=== PATIENT | female | born 2000 | race African-American/Black ===

== ENCOUNTER 2021-03-10 01:47 | Emergency (ER) | payer SELFPAY ==
--- OUTSIDE RECORDS SUMMARY | 2021-03-10 01:50 | XMS REPORT | Continuity of Care Document ---
:2000 Author Organization [facility] t Address [address] [place] [address] Care Team Providers Name Role Phone Unavailable Unavailable Unavailable Payers Payer Name Policy Type Policy Number Effective Date Expiration Date S ource Problems This patient has no known problems. Allergies, Adverse Reactions, Alerts Allergy Allergy Status Severity Reaction(s) Onset Inactive Treating Comm ents Source Name Type Date Date Clinician No Known DA Active U [facility] Allergie 12-17 Clear s 00:00: [place] 00 [facility] Medications This patient has no known medications. Procedures This patient has no known procedures. Results Test Description Test Time Test Comments Results Result Comments Source UA RFLX MICR CULT IF INDICATED 2020-12-17 01:04:00 Test Item Value Reference Range Interpretation Comme nts UA COLOR (test code = COLU) YELLOW YEL/STRAW UA APPEARANCE (test code = APPU) CLEAR CLEAR UA GLUCOSE DIPSTICK (test code = DGLUU) NEGATIVE NEGATIVE UA BILIRUBIN DIPSTICK (test code = BILU) NEGATIVE NEGATIVE UA KETONE DIPSTICK (test code = KETU) NEGATIVE NEGATIVE UA SPECIFIC GRAVITY (test code = SGU) 1.023 1.005-1.030 N UA BLOOD DIPSTICK (test code = ANTONIO) 2+ NEGATIVE A UA PH DIPSTICK (test code = SARAH) 6.0 5.0-7.0 N UA PROTEIN DIPSTICK (test code = PROU) NEGATIVE NEGATIVE UA UROBILINIOGEN DIPSTICK (test code = URO) 4.0 mg/dL 0.2-1.0 A UA NITRITE DIPSTICK (test code = YENNY) NEGATIVE NEGATIVE UA LEUKOCYTE ESTERASE DIPSTICK (test code = LEUU) 2+ NEGA TIVE A UA WBC (test code = WBCU) 10-20 WBC/HPF 0-3 A UA RBC (test code = RBCU) 0-3 RBC/HPF 0-3 UA WBC NO REFLEX (test code = WBCUCL) 10-20 WBC/HPF 0-3 A UA BACTERIA (test code = BACU) 1+ /HPF NONE SEEN A UA SQUAMOUS CELLS (test code = SQU) 0-5 /HPF NONE SEEN UA MUCUS (test code = MUCU) TRACE /LPF NONE SEEN Indication for culture: RiskForSepsis-no oth srcSpecimen Description: CLEAN CATCHUR HCG [id number] 00:59:00 Test Item Value Reference Range Interpretation Comments UR HCG QUAL (test code = HCGQLU) NEGATIVE NEGATIVE
[2021-03-10 02:51] LABS: Urine Blood Trace-intact (Negative); Urine Glucose 2+ (Negative); Urine Protein Negative (Negative); Urine Specific Gravity >=1.030 (1.005-1.030)
--- NOTE | 2021-03-10 03:03 | EDPHYS ---
Physician Documentation [facility] Name: Leelee Dallas Age: 20 yrs Sex: Female : 2000 Arrival Date: 03/10/2021 Time: 01:51 Bed 19 Private MD: ED Physician Mahamed Alexander HPI: 03/10 02:56 This 20 yrs old Black Female presents to ER via Ambulatory with complaints of Vaginal pkl Pain. 02:56 The patient presents with Vaginal itching and pain. Onset: The symptoms/episode pkl began/occurred 3 month(s) ago. 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 - Social history:: Smoking status: Patient denies any tobacco usage or history of. ROS: 02:56 Positive for Vaginal itching and pain. pkl 02:56 Eyes: Negative for injury, pain, redness, and discharge, ENT: Negative for injury, pain, and discharge, Neck: Negative for injury, pain, and swelling, Cardiovascular: Negative for chest pain, palpitations, and edema, Respiratory: Negative for shortness of breath, cough, wheezing, and pleuritic chest pain, Abdomen/GI: Negative for abdominal pain, nausea, vomiting, diarrhea, and constipation, Back: Negative for injury and pain, MS/Extremity: Negative for injury and deformity, Skin: Negative for injury, rash, and discoloration, Neuro: Negative for headache, weakness, numbness, tingling, and seizure. Exam: 02:56 Head/Face: Normocephalic, atraumatic. Eyes: Pupils equal round and reactive to light, pkl extra-ocular motions intact. Lids and lashes normal. Conjunctiva and sclera are non-icteric and not injected. Cornea within normal limits. Periorbital areas with no swelling, redness, or edema. ENT: Nares patent. No nasal discharge, no septal abnormalities noted. Tympanic membranes are normal and external auditory canals are clear. Oropharynx with no redness, swelling, or masses, exudates, or evidence of obstruction, uvula midline. Mucous membranes moist. Neck: Trachea midline, no thyromegaly or masses palpated, and no cervical lymphadenopathy. Supple, full range of motion without nuchal rigidity, or vertebral point tenderness. No Meningismus. Chest/axilla: Normal chest wall appearance and motion. Nontender with no deformity. No lesions are appreciated. Cardiovascular: Regular rate and rhythm with a normal S1 and S2. No gallops, murmurs, or rubs. Normal PMI, no JVD. No pulse deficits. Respiratory: Lungs have equal breath sounds bilaterally, clear to auscultation and percussion. No rales, rhonchi or wheezes noted. No increased work of breathing, no retractions or nasal flaring. Abdomen/GI: Soft, non-tender, with normal bowel sounds. No distension or tympany. No guarding or rebound. No evidence of tenderness throughout. Back: No spinal tenderness. No costovertebral tenderness. Full range of motion. 02:56 : Pelvic Exam: External exam: No vaginal discharge noted. 02:56 Musculoskeletal/extremity: Exam is negative for acute changes. 02:56 Skin: Exam negative for rash. 02:56 Neuro: Orientation: is normal, Mentation: is normal, Cranial nerves: grossly normal, Motor: is normal, Gait: is steady. Vital Signs: 02:01 BP 123 / 68; Pulse 101; Resp 16 S; Temp 98.6(O); Pulse Ox 99% on R/A; Weight 127.01 kg bb (R); Height 5 ft. 3 in. (160.02 cm) (R); Pain 0/10; 03:18 BP 115 / 74; Pulse 74; Resp 20; Pulse Ox 98% on R/A; ak2 02:01 Body Mass Index 49.60 (127.01 kg, 160.02 cm) bb MDM: 02:04 Patient medically screened. pkl 02:56 Data reviewed: vital signs, nurses notes. pkl 03/10 02:42 Order name: Vag/ure Culture 03/10 02:43 Order name: Vag/Ure Culture EDNH 03/10 02:50 Order name: Urine Dipstick-Ancillary; Complete Time: 04:35 EDNH 03/10 03:54 Order name: Accucheck; Complete Time: 03:54 bb Administered Medications: No medications were administered Disposition: 03/10/21 03:02 Discharged to Home. Impression: Vaginitis. Diabetes. - Condition is Stable. - Prescriptions for Diflucan 150 mg Oral Tablet - take 1 tablet by ORAL route one time for 2 days; 2 tablet. - Medication Reconciliation Form, Thank You Letter, Antibiotic Education, Prescription Opioid Use form. - Follow up: Monique Chambers MD; When: 2 - 3 days; Reason: Re-evaluation by your physician. - Problem is new. - Symptoms are unchanged. Signatures: Dispatcher [employer] EDMS Mahamed Alexander MD MD pkl Deyanira Rivera, RN RN bb Lukas Adams ak2 Corrections: (The following items were deleted from the chart) 03:11 03:02 03/10/2021 03:02 Discharged to Home. Impression: Vaginitis. Condition is Stable. pkl Forms are Medication Reconciliation Form, Thank You Letter, Antibiotic Education, Prescription Opioid Use. Follow up: Monique Chambers; When: 2 - 3 days; Reason: Re-evaluation by your physician. Problem is new. Symptoms are unchanged. pkl 03:19 03:11 03/10/2021 03:02 Discharged to Home. Impression: Vaginitis. Diabetes. Condition ak2 is Stable. Prescriptions for Diflucan 150 mg Oral Tablet - take 1 tablet by ORAL route one time for 2 days; 2 tablet. and Forms are Medication Reconciliation Form, Thank You Letter, Antibiotic Education, Prescription Opioid Use. Follow up: Monique Chambers; When: 2 - 3 days; Reason: Re-evaluation by your physician. Problem is new. Symptoms are unchanged. pkl 03:54 03:19 03/10/2021 03:02 Discharged to Home. Impression: Vaginitis. Diabetes. Condition bb is Stable. Prescriptions for Diflucan 150 mg Oral Tablet - take 1 tablet by ORAL route one time for 2 days; 2 tablet. and Forms are Medication Reconciliation Form, Thank You Letter, Antibiotic Education, Prescription Opioid Use. Follow up: Monique Chambers; When: 2 - 3 days; Reason: Re-evaluation by your physician. Problem is new. Symptoms are unchanged. ak2
--- NOTE | 2021-03-10 03:03 | ER ---
Nurse's Notes [facility] Name: Leelee Dallas Age: 20 yrs Sex: Female : 2000 Arrival Date: 03/10/2021 Time: 01:51 Bed 19 Private MD: Diagnosis: Vaginitis. Diabetes Presentation: 03/10 02:01 Chief complaint: Patient states: she is having vaginal itching and burning x 3 months bb she was treated for a yeast infection 3 months ago and it went away for 2 weeks then came back she is unable to use monistat because it lomas too much. Coronavirus screen: At this time, the client does not indicate any symptoms associated with coronavirus-19. Ebola Screen: No symptoms or risks identified at this time. Initial Sepsis Screen: Does the patient meet any 2 criteria? No. Patient's initial sepsis screen is negative. Does the patient have a suspected source of infection? No. Patient's initial sepsis screen is negative. Risk Assessment: Do you want to hurt yourself or someone else? Patient reports no desire to harm self or others. Onset of symptoms was November 2020. 02:01 Method Of Arrival: Ambulatory bb 02:01 Acuity: GISSELL 4 bb Triage Assessment: 02:04 General: Appears in no apparent distress. Behavior is calm, cooperative. Pain: ak2 Complains of pain in pelvis. 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 - Social history:: Smoking status: Patient denies any tobacco usage or history of. Screenin:04 Abuse screen: Denies threats or abuse. Denies injuries from another. Nutritional ak2 screening: No deficits noted. Tuberculosis screening: No symptoms or risk factors identified. Fall Risk None identified. Assessment: 02:37 General: urine preg test: negative. ak2 Vital Signs: 02:01 BP 123 / 68; Pulse 101; Resp 16 S; Temp 98.6(O); Pulse Ox 99% on R/A; Weight 127.01 kg bb (R); Height 5 ft. 3 in. (160.02 cm) (R); Pain 0/10; 03:18 BP 115 / 74; Pulse 74; Resp 20; Pulse Ox 98% on R/A; ak2 02:01 Body Mass Index 49.60 (127.01 kg, 160.02 cm) [facility] ED Course: 01:51 Patient arrived in ED. am4 02:03 Triage completed. bb 02:03 Lukas Adams is Primary Nurse. ak2 02:03 Arm band placed on Patient placed in an exam room, on a stretcher, on pulse oximetry. bb Family accompanied patient. 02:04 Mahamed Alexander MD is Attending Physician. pkl 02:04 Patient has correct armband on for positive identification. ak2 02:04 No provider procedures requiring assistance completed. ak2 02:40 Assist provider with pelvic exam: Performed by Mahamed Alexander MD Specimens sent to lab. bb Patient tolerated well. 03:02 Monique Chambers MD is Referral Physician. pkl Administered Medications: No medications were administered Outcome: 03:02 Discharge ordered by . pkl 03:18 Discharged to home ambulatory. ak2 03:18 Condition: good 03:18 Discharge instructions given to patient, Prescriptions given X 2. 03:19 Patient left the ED. ak2 03:54 Patient left the ED. bb Signatures: Mahamed Alexander MD MD pkl Deyanira Rivera RN RN Yoana Aldana am4 Lukas Adams ak2
[2021-03-10 04:09] VITALS: TEMP 98.6
[2021-03-10 04:15] VITALS: BP 115/74; O2SAT 98
== END 2021-03-10 03:54 | disposition home or self-care (01) ==
LOC: ER 01:47
DX: N76.0 Acute vaginitis (principal); E11.9 Type 2 diabetes mellitus without complications
CPT/HCPCS: 81003; 82947; 87070; 99284

== ENCOUNTER 2021-05-29 16:48 | Emergency (ER) | payer SELFPAY ==
--- OUTSIDE RECORDS SUMMARY | 2021-05-29 16:52 | XMS REPORT | Continuity of Care Document ---
:2000 Author Organization [facility] t Address [address] [place] [address] Care Team Providers Name Role Phone Unavailable Unavailable Unavailable Payers Payer Name Policy Type Policy Number Effective Date Expiration Date S ource Problems This patient has no known problems. Allergies, Adverse Reactions, Alerts Allergy Allergy Status Severity Reaction(s) Onset Inactive Treating Comm ents Source Name Type Date Date Clinician No Known DA Active U [facility] Allergie 12-17 Clear s 00:00: [place] 00 [facility] Medications This patient has no known medications. [...] RiskForSepsis-no oth srcSpecimen Description: CLEAN CATCHUR HCG [id number] 00:59:00 Test Item Value Reference Range Interpretation Comments UR HCG QUAL (test code = HCGQLU) NEGATIVE NEGATIVE
[2021-05-29] MEDS ORDERED: IBUPROFEN 200 MG TAB PO ONE ×2 (18:02→21:58)
[2021-05-29] MEDS ORDERED: IBUPROFEN 400 MG TAB ONE (18:02)
[2021-05-29] MEDS ORDERED: NA CHLORIDE 0.9% 1,000 ML ONE ×2 (18:24→21:52)
[2021-05-29 18:41] LABS: Absolute Lymphocytes (CBC) 2.6 K/uL (0.7-4.9); Basophils % 0.3 % (0-1.3); Hematocrit 44.5 % (36.0-45.0); Lymphocytes % 28.8 % (15.3-44.8); MPV 9.6 fL (7.6-11.3); RBC Red Blood Cell Count 5.14 M/uL (3.86-4.86)
[2021-05-29 18:51] LABS: Albumin 3.8 g/dL (3.4-5.0); Alkaline Phosphatase 95 U/L (45-117); BUN Blood Urea Nitrogen 9 mg/dL (7-18); Bicarbonate 26 mmol/L (21-32); Bilirubin Direct 0.2 mg/dL (0-0.2); Bilirubin Total 0.8 mg/dL (0.2-1.0); Glucose Level 170 mg/dL (74-106); Lipase 173 U/L (73-393); Potassium 3.3 mmol/L (3.5-5.1); Protein, Total 8.6 g/dL (6.4-8.2); Sodium Level 135 mmol/L (136-145)
[2021-05-29 18:52] LABS: ALT/SGPT 304 U/L (12-78); AST/SGOT 345 U/L (15-37)
[2021-05-29] MEDS ORDERED: ONDANSETRON 4 MG/2 ML VIAL ONE (21:57)
[2021-05-29] MEDS ORDERED: FAMOTIDINE 20 MG/2 ML VIAL IV ONE (21:58)
--- NOTE | 2021-05-29 21:59 | EDPHYS ---
Physician Documentation [facility] Name: Niko Dallas Age: 20 yrs Sex: Female : 2000 Arrival Date: 05/29/2021 Time: 16:52 Bed DIS11 Private MD: ED Physician Rodrigue Evans HPI: 05/29 20:30 This 20 yrs old Black Female presents to ER via Ambulatory with complaints of Light cp Headed, Vomiting. 20:30 The patient presents to the emergency department with nausea, that is moderate. cp 20:30 Onset: The symptoms/episode began/occurred 5 day(s) ago. Possible causes: unknown. cp Associated signs and symptoms: Pertinent positives: anorexia, fever, vomiting, cough, Pertinent negatives: abdominal pain, constipation, diarrhea, GI bleeding. Severity of symptoms: in the emergency department the symptoms are unchanged despite home interventions. 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 - Social history:: Smoking status: Patient denies any tobacco usage or history of. ROS: 20:35 Constitutional: Positive for body aches, fever, poor PO intake. cp 20:35 Respiratory: Positive for cough, with no reported sputum, Negative for shortness of cp breath, wheezing. 20:35 Abdomen/GI: Positive for nausea and vomiting, Negative for abdominal pain. Exam: 20:40 Constitutional: The patient appears in no acute distress, alert, awake, non-toxic, well cp developed, well nourished, febrile, obese. 20:40 Head/Face: Normocephalic, atraumatic. cp 20:40 Eyes: Periorbital structures: appear normal, Conjunctiva: normal, no exudate, no injection, Sclera: no appreciated abnormality, Lids and lashes: appear normal, bilaterally. 20:40 ENT: External ear(s): are unremarkable, Ear canal(s): are normal, clear, TM's: dullness, bilaterally, Nose: is normal, Mouth: Lips: moist, Oral mucosa: moist, Posterior pharynx: Airway: no evidence of obstruction, patent. 20:40 Neck: ROM/movement: is normal, is supple, no meningismus, no nuchal rigidity, Lymph nodes: no appreciated lymphadenopathy. 20:40 Chest/axilla: Inspection: normal, Palpation: is normal, no crepitus, no tenderness. 20:40 Cardiovascular: Rate: tachycardic, Rhythm: regular. 20:40 Respiratory: the patient does not display signs of respiratory distress, Respirations: normal, no use of accessory muscles, no retractions, labored breathing, is not present, Breath sounds: are clear throughout, no decreased breath sounds, no stridor, no wheezing. 20:40 Abdomen/GI: Inspection: abdomen appears normal, Bowel sounds: active, all quadrants, Palpation: abdomen is soft and non-tender, in all quadrants, rebound tenderness, is not appreciated, involuntary guarding, is not appreciated. 20:40 Back: pain, is absent, ROM is normal. 20:40 Neuro: Orientation: to person, place \\T\\ time. Mentation: is normal. Vital Signs: 17:28 BP 126 / 87; Pulse 128; Resp 17; Temp 102.7; Pulse Ox 98% ; Weight 127.01 kg; Height 5 jl7 ft. 3 in. (160.02 cm); Pain 8/10; 19:34 Temp 102.4(O); lp1 21:48 BP 125 / 86; Pulse 100; Resp 16; Temp 99.4; Pulse Ox 96% on R/A; ch4 22:34 BP 124 / 86; Pulse 89; Resp 17; Temp 99.2; Pulse Ox 97% on R/A; ch4 17:28 Body Mass Index 49.60 (127.01 kg, 160.02 cm) jl7 MDM: 20:12 Patient medically screened. cp 20:40 Differential diagnosis: gastritis, viral gastroenteritis, gastroenteritis, COVID-19, cp pneumonia, dehydration, electrolyte abnormality. 21:58 Data reviewed: vital signs, nurses notes, lab test result(s), and as a result, I will cp discharge patient. 21:58 Counseling: I had a detailed discussion with the patient and/or guardian regarding: the cp historical points, exam findings, and any diagnostic results supporting the discharge/admit diagnosis, lab results, to return to the emergency department if symptoms worsen or persist or if there are any questions or concerns that arise at home. Response to treatment: the patient's symptoms have markedly improved after treatment, patient is well hydrated. VSS. Fever resolved. Patient appears non-toxic and no signs of respiratory distress. Will discharge to home for continued monitoring. 05/29 17:50 Order name: Basic Metabolic Panel [facility] 05/29 17:50 Order name: CBC with Diff; Complete Time: 20:13 [facility] 05/29 20:13 Interpretation: Normal except: RBC 5.14; MN% 13.4. 05/29 17:50 Order name: Hepatic Function; Complete Time: 20:13 [facility] 05/29 20:13 Interpretation: Normal except: AST 345; ALT 304; TP 8.6. 05/29 17:50 Order name: Lipase; Complete Time: 20:13 [facility] 05/29 17:50 Order name: Basic Metabolic Panel; Complete Time: 20:13 [facility] 05/29 20:14 Interpretation: Normal except: NA 135; K 3.3; GLUC 170. 05/29 18:05 Order name: COVID-19 : Document "Date of Symptom Onset" if Symptomatic. 05/29 20:19 Order name: SARS-COV-2 RT PCR [facility] 05/29 20:29 Order name: XRAY Chest Pa And Lat (2 Views) 05/29 22:24 Order name: Urine Dipstick-Ancillary [facility] 05/29 17:50 Order name: IV Saline Lock; Complete Time: 18:12 [facility] 05/29 17:50 Order name: Labs collected and sent; Complete Time: 18:12 [facility] 05/29 20:13 Order name: Urine Dipstick-Ancillary (obtain specimen); Complete Time: 22:06 05/29 20:13 Order name: Urine Test (obtain specimen); Complete Time: 22:06 05/29 21:27 Order name: PO challenge; Complete Time: 21:40 05/29 21:28 Order name: Vital Signs: please rechesk to include temp; Complete Time: 21:45 cp Administered Medications: 18:07 Drug: Zofran (Ondansetron) 4 mg Route: IVP; Site: left antecubital; 7 18:07 Drug: NS 0.9% 1000 ml Route: IV; Rate: 1 bolus; Site: left antecubital; jl7 18:11 Drug: Motrin (ibuprofen) 600 mg Route: PO; jl7 21:40 Drug: Zofran (Ondansetron) 4 mg Route: IVP; Site: left antecubital; ch4 21:40 Drug: Pepcid (famotidine) 20 mg Route: IVP; Site: left antecubital; ch4 Disposition: 22:00 Chart complete. cp Disposition Summary: 05/29/21 21:58 Discharge Ordered Location: Home cp Problem: new cp Symptoms: have improved cp Condition: Stable cp Diagnosis - Nausea with vomiting, unspecified cp - SARS-associated coronavirus as the cause of diseases classified elsewhere cp Followup: cp - With: Private Physician - When: 2 - 3 days - Reason: Worsening of condition Discharge Instructions: - Discharge Summary Sheet cp - Nausea and Vomiting, Adult cp - COVID-19 cp - Things to Know about the COVID-19 Pandemic - [facility] cp - 10 Things You Can Do to Manage Your COVID-19 Symptoms at Home - [facility] cp - COVID-19: Quarantine vs. Isolation - [facility] cp - Prevent the Spread of COVID-19 if You Are Sick - [facility] cp Forms: - Medication Reconciliation Form cp - Thank You Letter cp - Antibiotic Education cp - Prescription Opioid Use cp Prescriptions: - Zofran 4 mg Oral Tablet - take 1 tablet by ORAL route every 12 hours As needed; 20 tablet; Refills: 0, cp Product Selection Permitted Addendum: 06/02/2021 07:04 Co-signature as Attending Physician, Rodrigue Evans MD I agree with the assessment and c ward plan of care. Signatures: Dispatcher [employer] EDRodrigue Mohan MD MD cha Page, Corey, PA PA cp Jerome Bella RN RN jl7 Megha Fierro, VALENTINA RN ch4 Corrections: (The following items were deleted from the chart) 05/29 19:17 18:05 CORONAVIRUS ordered. EDNM EDNM 20:13 20:13 Normal except: RBC 5.14. cp cp
--- NOTE | 2021-05-29 21:59 | ER ---
Nurse's Notes [facility] Name: Niko Dallas Age: 20 yrs Sex: Female : 2000 Arrival Date: 05/29/2021 Time: 16:52 Bed DIS11 Private MD: Diagnosis: Nausea with vomiting, unspecified;SARS-associated coronavirus as the cause of diseases classified elsewhere Presentation: 05/29 17:28 Chief complaint: Patient states: N/V, fever, cough, lightheaded, chills, body aches x 5 jl7 days. Coronavirus screen: Client denies travel out of the [place] in the last 14 days. cough unrelated to allergies, fatigue, fever, headache, nausea, vomiting. Client presents with at least one sign or symptom that may indicate coronavirus-19. Standard/surgical mask placed on the client. Provider contacted for isolation considerations. Ebola Screen: No symptoms or risks identified at this time. Initial Sepsis Screen: Does the patient meet any 2 criteria? No. Patient's initial sepsis screen is negative. Does the patient have a suspected source of infection? No. Patient's initial sepsis screen is negative. Risk Assessment: Do you want to hurt yourself or someone else? Patient reports no desire to harm self or others. Onset of symptoms was May 24, 2021. 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 - Social history:: Smoking status: Patient denies any tobacco usage or history of. Assessment: 21:41 General: Appears in no apparent distress. Pain: Denies pain. Neuro: No deficits noted. ch4 Cardiovascular: No deficits noted. Respiratory: No deficits noted. Reports. GI: Reports nausea, vomiting. : No deficits noted. EENT: No deficits noted. Derm: No deficits noted. Musculoskeletal: No deficits noted. Vital Signs: 17:28 BP 126 / 87; Pulse 128; Resp 17; Temp 102.7; Pulse Ox 98% ; Weight 127.01 kg; Height 5 jl7 ft. 3 in. (160.02 cm); Pain 8/10; 19:34 Temp 102.4(O); lp1 21:48 BP 125 / 86; Pulse 100; Resp 16; Temp 99.4; Pulse Ox 96% on R/A; ch4 22:34 BP 124 / 86; Pulse 89; Resp 17; Temp 99.2; Pulse Ox 97% on R/A; ch4 17:28 Body Mass Index 49.60 (127.01 kg, 160.02 cm) jl7 ED Course: 16:52 Patient arrived in ED. mr 17:31 Triage completed. jl7 17:31 Arm band placed on right wrist. jl7 18:12 Basic Metabolic Panel Sent. jl7 20:12 Rodrigue Gaytan PA is PHCP. cp 20:12 Rodrigue Evans MD is Attending Physician. cp 20:13 Megha Fierro, RN is Primary Nurse. ch4 21:04 XRAY Chest Pa And Lat (2 Views) In Process Unspecified. EDMD 21:41 COVID-19 : Document "Date of Symptom Onset" if Symptomatic. Sent. ch4 22:34 IV discontinued, intact, bleeding controlled, No redness/swelling at site. Pressure ch4 dressing applied. Administered Medications: 18:07 Drug: Zofran (Ondansetron) 4 mg Route: IVP; Site: left antecubital; jl7 18:07 Drug: NS 0.9% 1000 ml Route: IV; Rate: 1 bolus; Site: left antecubital; jl7 18:11 Drug: Motrin (ibuprofen) 600 mg Route: PO; jl7 21:40 Drug: Zofran (Ondansetron) 4 mg Route: IVP; Site: left antecubital; ch4 21:40 Drug: Pepcid (famotidine) 20 mg Route: IVP; Site: left antecubital; ch4 Outcome: 21:58 Discharge ordered by MD. cp 22:34 Patient left the ED. ch4 Signatures: Dispatcher [employer] EDMD DotsonGwendolyn mr GeeSally, RN RN lp1 Rodrigue Gaytan PA PA Jerome Bear RN RN jl7 Megha Fierro, VALENTINA RN ch4
[2021-05-29 22:24] LABS: Urine Blood 2+ (Negative); Urine Glucose Negative (Negative); Urine Protein 2+ (Negative); Urine Specific Gravity >=1.030 (1.005-1.030)
[2021-05-29 23:46] VITALS: BP 124/86; TEMP 99.2; O2SAT 97
--- NOTE | 2021-05-30 08:32 | RAD REPORT ---
EXAM DESCRIPTION: RAD - Chest Pa And Lat (2 Views) - 05/29/2021 9:04 pm CLINICAL HISTORY: COUGH Chest pain. COMPARISON: No comparisons FINDINGS: Mild interstitial pulmonary opacities are present suggesting mild viral infection. The hea rt is normal in size. No displaced fractures.
== END 2021-05-29 22:34 | disposition home or self-care (01) ==
LOC: ER 16:48
DX: U07.1 COVID-19 (principal)
CPT/HCPCS: 36415; 71046; 80048; 80076; 81003; 83690; 85025; 96374; 96375; 99283; J2405; J7030; U0003